=== PATIENT | male | born 1935 | race Caucasian/White ===

== ENCOUNTER 2019-06-17 19:19 | Inpatient (IN) | payer OTHER ==
[~2019-06-17] VITALS: Ht 182.9 cm; Wt 88.5 kg
[2019-06-17 19:25] VITALS: BP 193/106
[2019-06-17] MEDS ORDERED: LISINOPRIL20 MG PO (19:34)
[2019-06-17] MEDS ORDERED: VITAMIN B-1100 M1 PO (19:34)
[2019-06-17] MEDS ORDERED: CENTRUM SILVER1 EAC4 PO (19:34)
[2019-06-17] MEDS ORDERED: METFORMIN HCL500 MG PO (19:35)
[2019-06-17] MEDS ORDERED: PRAVACHOL40 MG PO (19:35)
[2019-06-17] MEDS ORDERED: CARVEDILOL6.25 M1 PO (19:35)
[2019-06-17] MEDS ORDERED: PRILOSEC OTC20 MG PO (19:35)
[2019-06-17] MEDS ORDERED: ASPIR 8181 MG PO (19:36)
[2019-06-17] MEDS ORDERED: TERAZOSIN HCL5 MG PO (19:36)
[2019-06-17] MEDS ORDERED: ELIQUIS5 MG PO (19:36)
[2019-06-17 20:04] LABS: ABSOLUTE EOSINOPHILS 0.3 thou/uL (0.0-0.7); ABSOLUTE MONOCYTES 0.7 thou/uL (0.0-1.2); ABSOLUTE NEUTROPHILS 3.5 thou/uL (1.6-8.1); BASOPHILS 0.6 %; EOSINOPHILS 5.8 %; HEMATOCRIT 33.4 % (42.0-52.0); HEMOGLOBIN 11.5 gm/dL (14.0-18.0); LYMPHOCYTES 17.6 %; MCH 32.1 pg (26.0-34.0); MCHC 34.5 g/dL (28.0-37.0); MCV 93.1 fL (80.0-100.0); MONOCYTES 12.1 %; MPV 7.3 fl. (7.2-11.1); NUCLEATED RBCS 0 /100WBC; PLATELET COUNT* 155 thou/uL (150-400); POLYS 63.9 %; RBC 3.59 mil/uL (4.50-6.00); RDW-CV 13.2 % (10.5-14.5); WBC 5.4 thou/uL (4.0-11.0)
[2019-06-17 20:10] LABS: ANION GAP 9 mmol/L (7-16); BUN 15 mg/dL (7-18); CALCIUM 8.6 mg/dL (8.5-10.1); CHLORIDE 96 mmol/L (98-107); CO2 26 mmol/L (21-32); GLUCOSE 89 mg/dL (70-99); POTASSIUM 4.4 mmol/L (3.5-5.1); SODIUM 131 mmol/L (136-145)
[2019-06-17 20:20] LABS: ALBUMIN 3.5 g/dL (3.4-5.0); INR 1.1; LIPASE 90 U/L (73-393); NT-PRO BRAIN NAT PEPTIDE 2839 pg/mL (<300); PROTIME 11.5 Seconds (9.20-11.50); SGOT 19 U/L (15-37); SGPT 20 U/L (30-65); TOTAL BILIRUBIN 0.3 mg/dL (<0.1-1.0); TOTAL PROTEIN 7.1 g/dL (6.4-8.2); TROPONIN-I LEVEL <0.06 ng/mL (<0.06)
[2019-06-17 20:52] LABS: ALKALINE PHOSPHATASE 66 U/L (46-116)
[2019-06-17 21:53] VITALS: BP 180/94
[2019-06-17 22:10] VITALS: BP 200/100
[2019-06-17 22:12] VITALS: BP 201/100
[2019-06-17] MEDS ORDERED: CARVEDILOL12.5 MG PO (22:45)
[2019-06-17 22:54] VITALS: BP 173/87
[2019-06-18 04:03] VITALS: BP 139/79
--- NOTE | 2019-06-18 05:20 | NUR ---
PATIENT PROGRESSING TOWARDS GOALS: BLOOD PRESSURE IMPROVED WITH MEDICATION PER MAR. PATIENT STATES THAT DOUBLE/BLURRED VISION IS ONLY WITH DISTANT VISION. PATIENT DENIES PAIN AND DISCOMFORT. CALL LIGHT WITHIN REACH
[2019-06-18 08:41] VITALS: BP 171/94
[2019-06-18 08:42] VITALS: BP 172/97
[2019-06-18 09:32] LABS: CHOLESTEROL 145 mg/dL (<200); HDL CHOLESTEROL 41 mg/dL (>40); LDL CHOLESTEROL 93 mg/dL (<100); TC:HDL 3.5 Ratio (Not establshd); TRIGLYCERIDE 55 mg/dL (<150); VLDL 11 mg/dL (<40)
[2019-06-18 09:39] LABS: SERUM ASSESSMENT Clear
--- NOTE | 2019-06-18 10:07 | NUR ---
ASSUMED PT CARE 0730. PT A/O X'S 4. NIH 0 AND CHARTED. RN BEDSIDE SWALLOW PREFORMED. PT NOT FOUND TO HAVE ANY SWALLOW DIFFICULTIES. SWALLOW EVAL CHARTED. PT EDUCATED ON MEDICATIONS AND PLAN OF CARE. PT COMMUNICATES UNDERSTANDING. PT DENIES DOUBLE VISION AT THIS TIME. URINE SAMPLE COLLETED AND SENT TO LAB.
[2019-06-18 10:13] LABS: URINE BILIRUBIN NEGATIVE (Negative); URINE BLOOD NEGATIVE (Negative); URINE CLARITY CLEAR; URINE COLOR YELLOW; URINE GLUCOSE-RANDOM NEGATIVE (Negative); URINE KETONES NEGATIVE (Negative); URINE LEUKOCYTES-REFLEX NEGATIVE (Negative); URINE NITRITE-REFLEX NEGATIVE (Negative); URINE PROTEIN NEGATIVE (Negative); URINE UROBILINOGEN 0.2 E.U./dl (0.2-1.0)
--- NOTE | 2019-06-18 10:48 | EKG ---
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[place] : 1935 Requested By: Kathe Bravo Order Number: [id number] MD: Jaziel Dash Measurements Intervals [place] Rate: 70 P: [place]: QRS: -48 QRSD: 130 T: -20 QT: 431 QTc: 466 Interpretive Statements Afib/flutter and ventricular-paced rhythm No further analysis attempted due to paced rhythm Compared to ECG 05/09/2008 16:34:30 Sinus bradycardia no longer present Electronically Signed On 06-18-2019 10:48:00 CDT by Jaziel Dash [email or web address] <ELECTRONICALLY SIGNED> By: Jaziel Dash MD, [facility] 06/18/19 1048 47 47 Jaziel Dash MD, [facility] /EPI
[2019-06-18 12:00] VITALS: BP 150/80
--- NOTE | 2019-06-18 13:51 | NUR ---
MET WITH PT TO DISCUSS HOME SITUATION/DC PLANNING. PT LIVES WITH , IS INDEPENDENT AND ACTIVE. USES NO EQUIPMENT. PLANS TO RETURN HOME AT DC DENIES NEEDS
--- NOTE | 2019-06-18 17:04 | 2DMMODE ---
[place] [address] 2 D/M-MODE ECHOCARDIOGRAM Name: STEVEN HOPE Room: [address] IN [facility]#: [id number] Admission: 06/17/19 Attend Phys: Yessi Wells, Discharge: Date of : 37 Date of Service: 06/18/19 1704 Report #: [id number] THIS REPORT FOR: //name// APPROVED REPORT Study performed: 06/18/2019 13:37:36 EXAM: Comprehensive 2D, Doppler, and color-flow Echocardiogram Patient Location: In-Patient Status: routine BSA: 2.06 HR: 70 bpm BP: 172/97 mmHg Other Information Study Quality: Good Indications CVA/TIA CAD Echo Enhancing Agent Indication: Rule out Shunt Agent(s) / Amount(s) Used: Agitated Saline 10 cc 2D Dimensions IVSd: 10.22 (7-11mm) LVOT Diam: 21.89 (18-24mm) LVDd: 38.58 mm PWd: 13.28 (7-11mm) Ascending Ao: 36.38 (22-36mm) LVDs: 28.06 (25-40mm) Aortic Root: 30.74 mm Volumes Left Atrial Volume (Systole) LA ESV Index: 45.80 mL/m2 Aortic Valve AoV Peak Ameya.: 1.61 m/s AO Peak Gr.: 10.43 mmHg LVOT Max P.57 mmHg AO Mean Gr.: 5.84 mmHg LVOT Mean P.20 mmHg LVOT Max V: 0.80 m/s AO V2 VTI: 31.92 cm LVOT Mean V: 0.49 m/s RALPH (VTI): 1.88 cm2 LVOT V1 VTI: 15.98 [place] [address] 2 D/M-MODE ECHOCARDIOGRAM Name: STEVEN HOPE Room: [address] IN ..#: [id number] Admission: 06/17/19 Attend Phys: Yessi Wells, Discharge: Date of : 37 Date of Service: 06/18/19 1704 Report #: [id number] Mitral Valve MV Decel. Time: 201.59 ms MV PHT: 58.46 ms MVA (PHT): 3.76 cm2 TDI Medial E' Ameya.: 0.11 m/s Lateral E' Ameya.: 0.11 m/s Pulmonary Valve PV Peak Ameya.: 0.82 m/s PV Peak Gr.: 2.68 mmHg Left Ventricle The left ventricle is normal size. There is normal LV segmental wall motion. There is normal left ventricular wall thickness. Left ventricular systolic function is normal. LVEF is 60-65%. This study is not technically sufficient to allow evaluation of the LV diastolic function due to atrial fibrillation. Right Ventricle The right ventricle is normal size. The right ventricular systolic function is normal. Pacemaker lead is present in the right ventricle. Atria Left atrium is moderately dilated. Interatrial septum is intact without evidence of ASD or PFO. The right atrium size is normal. Aortic Valve Bioprosthetic aortic valve is present. No aortic regurgitation is present. There is no aortic valvular stenosis. Mitral Valve There is mitral annular calcification. Trace mitral regurgitation. No evidence of mitral valve stenosis. Tricuspid Valve The tricuspid valve is normal in structure. Unable to assess PA pressure. Trace tricuspid regurgitation. Pulmonic Valve The pulmonary valve is normal in structure. Mild pulmonic regurgitation. Great Vessels The aortic root is normal in size. IVC is [place] [address] 2 D/M-MODE ECHOCARDIOGRAM Name: STEVEN HOPE Room: [address] IN [facility]#: [id number] Admission: 06/17/19 Attend Phys: Yessi Wells, Discharge: Date of : 37 Date of Service: 06/18/19 1704 Report #: [id number] collapses >50% with inspiration. Pericardium There is no pericardial effusion. <Conclusion> The left ventricle is normal size. Left ventricular systolic function is normal. LVEF is 60-65%. This study is not technically sufficient to allow evaluation of the LV diastolic function due to atrial fibrillation. Pacemaker lead is present in the right ventricle. Interatrial septum is intact without evidence of ASD or PFO. Bioprosthetic aortic valve is present. No aortic regurgitation is present. Trace mitral regurgitation. Trace tricuspid regurgitation. Mild pulmonic regurgitation. IVC is normal in size and collapses >50% with inspiration. <ELECTRONICALLY SIGNED> By: Imtiaz Marquis MD, FACC 06/18/19 1704 03 03 Imtiaz Marquis MD, FACC /INF
[2019-06-18 17:51] VITALS: BP 150/80
--- NOTE | 2019-06-18 19:00 | NUR ---
NEURO AND VASCULAR OKAY WITH DISCHARGE. RECEIVED DISCHARGE ORDERS. IV AND TOP ICER DC'D. PT AND FAMILY MEMBER EDUCATED ON DISCHARGE INSTRUCTED. PT INSTRUCTED TO F/U WITH OPTHAMOLOGY, CARDIOLOGY, VASCULAR AND PRIMARY DR. PT AND FAMILY COMMUNICATE UNDERSTANDING. ALL BELONGINGS PACKED UP AND LEFT WITH PATIENT.
[2019-06-19 02:10] LABS: GLYCOHEMOGLOBIN (HGB A1C) 6.1 % (4.8-5.6)
== END 2019-06-18 18:27 | disposition home or self-care (01) | DRG 69 ==
LOC: M.ERS 19:19 → M.2W 21:39 → M.TBA-ER 21:39 → M.2W 21:46
PROVIDERS: Emergency Medicine; Internal Medicine; ADMIT Internal Medicine
DX: G45.9 Transient cerebral ischemic attack, unspecified (principal); I16.1 Hypertensive emergency; D68.69 Other thrombophilia; E78.5 Hyperlipidemia, unspecified; I10 Essential (primary) hypertension; I48.91 Unspecified atrial fibrillation; E11.51 Type 2 diabetes mellitus with diabetic peripheral angiopathy without gangrene; I25.10 Atherosclerotic heart disease of native coronary artery without angina pectoris; Z95.5 Presence of coronary angioplasty implant and graft; Z95.0 Presence of cardiac pacemaker; Z95.1 Presence of aortocoronary bypass graft; Z88.0 Allergy status to penicillin; Z87.891 Personal history of nicotine dependence; Z95.2 Presence of prosthetic heart valve; Z79.82 Long term (current) use of aspirin; Z79.899 Other long term (current) drug therapy; Z79.01 Long term (current) use of anticoagulants

== ENCOUNTER 2019-10-15 09:41 | Inpatient (IN) | payer OTHER ==
[~2019-10-15] VITALS: Ht 182.9 cm; Wt 88.9 kg
[~2019-10-15 09:41] MED LIST: ASPIR 8181 MG PO; CARVEDILOL12.5 MG PO; CARVEDILOL6.25 M1 PO; CENTRUM SILVER1 EAC4 PO; ELIQUIS5 MG PO; LISINOPRIL20 MG PO; METFORMIN HCL500 MG PO; PRAVACHOL40 MG PO; PRILOSEC OTC20 MG PO; TERAZOSIN HCL5 MG PO; VITAMIN B-1100 M1 PO
[2019-10-15 10:25] LABS: HEMATOCRIT 30.7 % (42.0-52.0); HEMOGLOBIN 10.7 gm/dL (14.0-18.0); MCH 31.5 pg (26.0-34.0); MCHC 34.7 g/dL (28.0-37.0); MCV 90.8 fL (80.0-100.0); MPV 7.6 fl. (7.2-11.1); NUCLEATED RBCS 0 /100WBC; PLATELET COUNT* 154 thou/uL (150-400); RBC 3.39 mil/uL (4.50-6.00); RDW-CV 13.4 % (10.5-14.5); WBC 13.5 thou/uL (4.0-11.0)
[2019-10-15 10:31] LABS: CALCIUM 7.9 mg/dL (8.5-10.1); CREATININE 1.6 mg/dL (0.6-1.3); POTASSIUM 4.3 mmol/L (3.5-5.1)
[2019-10-15 10:36] LABS: ALBUMIN 2.5 g/dL (3.4-5.0); TOTAL BILIRUBIN 1.4 mg/dL (<0.1-1.0); TOTAL PROTEIN 6.8 g/dL (6.4-8.2)
[2019-10-15 10:53] LABS: ABSOLUTE EOSINOPHILS 0.1 thou/uL (0.0-0.7); ABSOLUTE LYMPHOCYTES 0.9 thou/uL (0.8-5.3); ABSOLUTE MONOCYTES 0.1 thou/uL (0.0-1.2); ABSOLUTE NEUTROPHILS 12.3 thou/uL (1.6-8.1); PLATELET ESTIMATE ADEQUATE
[2019-10-15 11:03] LABS: MAGNESIUM 2.1 mg/dL (1.8-2.4); PHOSPHORUS* 3.2 mg/dL (2.5-4.9)
--- NOTE | 2019-10-15 11:29 | NUR ---
PT BACK FROM RADIOLOGY VIA STRETCHER BY [employer].
[2019-10-15 12:48] LABS: BE -0.4 mmol/L (-2 to +3); PCO2 31.2 mmHg (35.0-45.0); PO2 67.1 mmHg (75.0-100.0); pH 7.475 (7.340-7.450)
--- NOTE | 2019-10-15 15:06 | EKG ---
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[facility] : 1935 Requested By: Manisha Hanks Order Number: [id number] MD: Robert Potter Measurements Intervals [place] Rate: 70 P: [place]: QRS: -39 QRSD: 136 T: -42 QT: 436 QTc: 471 Interpretive Statements Afib/flutter and ventricular-paced rhythm No further analysis attempted due to paced rhythm Compared to ECG 06/17/2019 19:48:49 No significant changes Electronically Signed On 10-15-2019 15:05:50 GOLD LEAF PRINTER by Robert Potter [email or web address] <ELECTRONICALLY SIGNED> By: Robert Potter MD, [facility] 10/15/19 1505 1056 1056 Robert Potter MD, [facility] /EPI
--- NOTE | 2019-10-15 15:23 | NUR ---
THIS NURSE CALLED FOR PT REPORT X2. FLOOR NURSE UNAVAILABLE FOR REPORT BOTH TIMES. PT AND PT FAMILY MADE AWARE OF DELAY.
[2019-10-15 15:29] VITALS: BP 108/58
--- NOTE | 2019-10-15 15:29 | NUR ---
REPORT GIVEN TO ALMAS MARTINEZ WHO IS TO ASSUME PT CARE INPATIENT NURSE.
--- NOTE | 2019-10-15 15:55 | NUR ---
PT ARRIVED TO UNIT AT APPROX 1545 VIA CART, AND SON AT BEDSIDE, REPORT TAKEN YOEL ALARCON RN. PT A&O X4, HR SHARED SERVICES CONSULTANT TRACING V PACED, RA, VSS. ORIENTED TO CALL LIGHT AND ROOM.
[2019-10-15 18:43] LABS: URINE BILIRUBIN NEGATIVE (Negative); URINE BLOOD 1+ (Negative); URINE CLARITY CLEAR; URINE COLOR YELLOW; URINE GLUCOSE-RANDOM NEGATIVE (Negative); URINE KETONES NEGATIVE (Negative); URINE LEUKOCYTES-REFLEX NEGATIVE (Negative); URINE NITRITE-REFLEX NEGATIVE (Negative); URINE PROTEIN 1+ (Negative); URINE SPECIFIC GRAVITY <= 1.005 (1.005-1.030); URINE UROBILINOGEN 0.2 E.U./dl (0.2-1.0)
[2019-10-15 18:54] LABS: BACTERIA-REFLEX None Seen /HPF (None Seen); CASTS None Seen /LPF (None Seen); CRYSTALS None Seen /LPF (None Seen); SQUAMOUS 0-3 Few /LPF (0-3); URINE RBC 0-2 Rare /HPF (0-2); URINE WBC-REFLEX None Seen /HPF (0-5)
[2019-10-15 20:00] VITALS: BP 117/57
[2019-10-16] VITALS (8 sets, daily range): BP systolic 108–144; BP diastolic 55–68
--- NOTE | 2019-10-16 02:41 | NUR ---
PT ALERT ORIENTED. 3% SODIUM CLORIDE INFUSING AT 30MLS/HR. NA LEVELS RISING. TELEMTRY SHOWS VPACED. WCTM.
[2019-10-16 06:27] LABS: ALBUMIN 2.1 g/dL (3.4-5.0); CALCIUM 7.7 mg/dL (8.5-10.1); CREATININE 1.1 mg/dL (0.6-1.3); POTASSIUM 3.8 mmol/L (3.5-5.1); TOTAL BILIRUBIN 0.8 mg/dL (<0.1-1.0); TOTAL PROTEIN 5.9 g/dL (6.4-8.2)
--- NOTE | 2019-10-16 18:35 | NUR ---
PATINET RESTING IN BED. NO APPRECIABLE BOWEL MOVEMENT TODAY. HYPOACTIVE BOWEL SOUNDS. VSS. UP WITH STANDBY ASSISTANCE. HOURLY ROUNDING COMPETED FOR PATINET SAFETY
[2019-10-17 04:00] VITALS: BP 141/70
--- NOTE | 2019-10-17 05:28 | NUR ---
ASSUMED PT CARE AT APPROX 1930. PT IS AWAKE AND ORIENTED X4. VSS ON ROOM AIR. ASSESSMENT DONE AND CHARTED. PT IS VPACED ON THE CITY WELLNESS COORDINATOR. PT IS ABLE TO SLEEP MOST OF THE NIGHT. CALL LIGHT WITHIN REACH. POSITION CHANGES DONE. HIGH FALL PRECAUTIONS IN PLACE. HOURLY ROUNDING DONE FOR PT SAFETY.
[2019-10-17 07:59] VITALS: BP 147/86
[2019-10-17 13:52] VITALS: BP 141/74
[2019-10-17 14:09] LABS: CALCIUM 7.3 mg/dL (8.5-10.1); POTASSIUM 3.7 mmol/L (3.5-5.1)
[2019-10-17 16:47] VITALS: BP 139/67
--- NOTE | 2019-10-17 18:20 | NUR ---
PTAIENT RESTING IN BED. UP AD AMARILYS IN ROOM. AOX4. VSS. ALICE HAD 1 LARGE BOWEL MOVEMENT TODAY AFTER SOAP SUDS ENEMA AND ONE SMALL BOWEL MOVEMENT LATER. ACTIVE BOWEL SOUNDS. HOURY ROUNDING COMPETED FOR PATIENT SAFETY. NA LAB AT 128 WITH ORDERS TO DSCHARGE HOME IF 129 OR HIGHER. HOURLY ROUNDING COMPLETED FOR PATIENT SAFETY.
[2019-10-17 20:00] VITALS: BP 134/68
[2019-10-18] VITALS: BP 127/60
[2019-10-18 04:00] VITALS: BP 123/62
--- NOTE | 2019-10-18 04:46 | NUR ---
ASSUMED PT CARE AT APPROX 1930. PT IS AWAKE AND ORIENTED X4. VSS ON ROOM AIR. ASSESSMENT DONE AND CHARTED. PT IS VPACED ON THE EMPLOYEE COUNSELOR. PT IS ABLE TO SLEEP MOST OF THE NIGHT. CALL LIGHT WITHIN REACH. PT IS REMINDED ON FLUID RESTRICTION OF 1500ml/DAY. FALL PRECAUTIONS IN PLACE. HOURLY ROUNDING DONE FOR PT SAFETY.
[2019-10-18 07:51] VITALS: BP 140/69
[2019-10-18 12:00] VITALS: BP 125/83
[2019-10-18 14:17] LABS: CALCIUM 8.2 mg/dL (8.5-10.1); POTASSIUM 3.7 mmol/L (3.5-5.1)
[2019-10-18 14:32] VITALS: BP 125/83
--- NOTE | 2019-10-18 19:01 | NUR ---
ORDER RECEIVED TO DISCHARGE PATIENT HOME TO SELF CARE WITH HIS SPOUSE. MED REC, MEDICATION EDUCATION, STROKE EDUCATION, AND NEED FOR FOLLOW UP WITH PRIMARY CARE AND CARDIOLOGY COVERED WITH ALICE AND BURTON UNDERSTOOD. IV AND TELEMETRY PACK REMOVED. PATIENT CHOSE TO AMBULATED TO CAR WITH STAFF TO AWAITING CAR WITH FAMILY PRESENT. DC TIME OF 15:30. HOURLY ROUNDING COMPLETED FOR PATIENT SAFETY.
== END 2019-10-18 15:38 | disposition home or self-care (01) | DRG 682 ==
LOC: M.ERS 09:41 → M.TBA-ER 12:20 → M.2W 12:20
PROVIDERS: Personal Emergency Response Attendant; ADMIT Internal Medicine
DX: N17.9 Acute kidney failure, unspecified (principal); G92 Toxic encephalopathy; J18.9 Pneumonia, unspecified organism; E87.1 Hypo-osmolality and hyponatremia; J91.8 Pleural effusion in other conditions classified elsewhere; K80.20 Calculus of gallbladder without cholecystitis without obstruction; F10.10 Alcohol abuse, uncomplicated; I10 Essential (primary) hypertension; E11.9 Type 2 diabetes mellitus without complications; I48.91 Unspecified atrial fibrillation; I25.10 Atherosclerotic heart disease of native coronary artery without angina pectoris; K59.00 Constipation, unspecified; E78.5 Hyperlipidemia, unspecified; Z79.899 Other long term (current) drug therapy; Z79.82 Long term (current) use of aspirin; Z88.0 Allergy status to penicillin; Z95.5 Presence of coronary angioplasty implant and graft; Z95.1 Presence of aortocoronary bypass graft; Z95.0 Presence of cardiac pacemaker; Z28.21 Immunization not carried out because of patient refusal; Z95.2 Presence of prosthetic heart valve; Z87.891 Personal history of nicotine dependence; Z79.01 Long term (current) use of anticoagulants

== ENCOUNTER 2019-12-27 08:36 | Day surgery (SDC) | payer OTHER ==
--- NOTE | ~2019-12-27 | PROC ---
[facility] [address] [place] [address] PROCEDURE REPORT Name: STEVEN HOPE Room: [facility] M.R.#: [id number] Admission: 12/27/19 Attend Phys: Corky Gomez DO Discharge: 12/27/19 Date of : 37 Report #: [id number] THIS REPORT FOR: //name// cc: Jaziel Gannon John E. DO ~ THIS REPORT FOR: //name// For GI report, please see the Provation report in Perceptive 7 content. By: 0644Medical Records Staff ADRIANO /KATYA
[2019-12-27 09:18] LABS: HEMATOCRIT 35.1 % (42.0-52.0); MCH 30.7 pg (26.0-34.0); MCHC 34.3 g/dL (28.0-37.0); MCV 89.6 fL (80.0-100.0); MPV 6.6 fl. (7.2-11.1); RBC 3.92 mil/uL (4.50-6.00); RDW-CV 15.7 % (10.5-14.5); WBC 6.2 thou/uL (4.0-11.0)
[2019-12-27 09:26] LABS: CALCIUM 8.9 mg/dL (8.5-10.1); CREATININE 0.9 mg/dL (0.6-1.3); POTASSIUM 4.4 mmol/L (3.5-5.1)
[2019-12-27 12:29] LABS: ALBUMIN 3.5 g/dL (3.4-5.0); DIRECT BILIRUBIN 0.2 mg/dL (<0.1-0.3); TOTAL BILIRUBIN 0.6 mg/dL (<0.1-1.0); TOTAL PROTEIN 7.5 g/dL (6.4-8.2)
--- NOTE | 2019-12-29 14:07 | PATH ---
[facility] [address] [place] [address] PATHOLOGY RPT PROCEDURE Name: FABRIZIO HOPE Room: [facility].#: [id number] Admission: 12/27/19 Date of : 37 Discharge: 12/27/19 Report #: [id number] Path Case #: [id number] [facility] Accession Number: [id number] . 01 Material submitted: . colon - PROXIMAL ASCENDING COLON POLYP - HOT SNARE. Modifiers: ascending, proximal . 01 Clinical history: . Iron deficiency anemia . 02 Diagnosis: Proximal ascending colon polyp: - Tubular adenoma, negative for high-grade dysplasia. (LYNN:geno; 12/29/2019) QMS 12/29/2019 1157 Local . 02 Electronically signed: . Kareem Rojo MD, Pathologist NPI- [id number] . 01 Gross description: . The specimen is received in formalin, labeled "Fabrizio Hope, proximal ascending colon polyp" and consists of 3 fragments of pink-eduardo tissue measuring between 0.2 x 0.2 cm and 0.5 x 0.4 x 0.2 cm which are entirely submitted in A1. (SDY; 12/28/2019) SYU/SYU 12/28/2019 1509 Local . 02 Pathologist provided ICD-10: D12.2 . 02 CPT . 439009 Specimen Comment: A courtesy copy of this report has been sent to [phone], [phone] Specimen Comment: [phone] Specimen Comment: Report sent to / DR GARCÍA Performed at: [address] [facility] [address], [place], [place] [id number] MD Elmo James MD Phone: [phone] Performed at: [address] [facility] [address] [place], [place] [id number] MD Kareem Rojo MD Phone: [phone]
== END 2019-12-27 12:20 | disposition home or self-care (01) ==
LOC: M.SUR 08:36
PROVIDERS: Internal Medicine Gastroenterology
DX: D64.9 Anemia, unspecified (principal); R93.3 Abnormal findings on diagnostic imaging of other parts of digestive tract; R12 Heartburn; K57.30 Diverticulosis of large intestine without perforation or abscess without bleeding; D12.3 Benign neoplasm of transverse colon; K55.20 Angiodysplasia of colon without hemorrhage; K64.4 Residual hemorrhoidal skin tags; K21.9 Gastro-esophageal reflux disease without esophagitis; I10 Essential (primary) hypertension; I48.91 Unspecified atrial fibrillation; E11.9 Type 2 diabetes mellitus without complications; I25.10 Atherosclerotic heart disease of native coronary artery without angina pectoris; E78.00 Pure hypercholesterolemia, unspecified; Z98.890 Other specified postprocedural states; Z79.899 Other long term (current) drug therapy; Z79.01 Long term (current) use of anticoagulants; Z87.891 Personal history of nicotine dependence; Z88.0 Allergy status to penicillin; Z95.1 Presence of aortocoronary bypass graft; Z95.0 Presence of cardiac pacemaker

== ENCOUNTER → 2021-10-25 | Outpatient (CLI) | payer OTHER ==
[~2021-10-25] VITALS: Ht 177.8 cm; Wt 88.9 kg
[~2021-10-25] MED LIST changes: +ASA81BEC PO
--- NOTE | 2021-10-25 10:56 | H ---
[place] [address] HISTORY AND PHYSICAL Name: STEVEN HOPE Room: [facility].#: [id number] Admission: Attend Phys: Imtiaz Marquis MD Discharge: Date of : 37 Report #: [id number] THIS REPORT FOR: cc: Jaziel Gannon John E. DO Holkins, John M. MD FACC ~ ADMIT DATE: 10/25/2021 ADMITTING HISTORY AND PHYSICAL HISTORY OF PRESENT ILLNESS: The patient will be admitted for procedure in a cardiac catheterization lab on 10/25/2021. 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 Postoperatively, he demonstrated moderate impairment in LV function and a BiV ICD was placed as he also demonstrated transitory heart block. More recently, he has demonstrated evidence for persistent atrial fibrillation, has been anticoagulated with Eliquis. So, I most recently saw him, he had been working outside, 4-6 hours per day without provocation of chest discomfort undue dyspnea, palpitations, dizziness or syncope. He has remained compliant with anticoagulant therapy, remodeling therapy, and lipid-lowering therapy without side effects of same. MEDICATIONS: Have included Eliquis 5 mg b.i.d., aspirin 81 mg b.i.d., carvedilol 12.5 mg b.i.d., lisinopril 20 mg daily, omeprazole 20 mg daily, Pravachol, pravastatin 40 mg daily, terazosin 5 mg in the evening. PAST MEDICAL HISTORY: Remarkable for ischemic cardiomyopathy, heart block and hypercholesterolemia. REVIEW OF SYSTEMS: Unremarkable with the exception of diminished urinary stream. PHYSICAL EXAMINATION: GENERAL: Demonstrates an elderly male who is fit appearing and in no acute distress. VITAL SIGNS: Blood pressure is 135/70, pulse rate is 70, respirations are 18 per minute. NECK: Jugular venous pressure is normal. [place]ST: [place] [address] HISTORY AND PHYSICAL Name: STEVEN HOPE Room: [facility].#: [id number] Admission: Attend Phys: Imtiaz Marquis MD Discharge: Date of : 37 Report #: [id number] CARDIAC: Reveals a normal first and second heart sounds with a slightly increased S2. No murmurs are noted. ABDOMEN: Soft and nontender. EXTREMITIES: Without edema with intact pulses. LABORATORY DATA: Recent assessment of his paced Bi-V ICD revealed that he had met elective replacement indicators as of 10/17/2021. IMPRESSION: 1. Coronary artery disease. 2. Status post coronary artery bypass grafting. 3. Status post aortic valve replacement. 4. Status post placement of a BiV ICD with evidence of meeting replacement indicators as of 10/17/2021. 5. Hypertension. 6. Ischemic cardiomyopathy. 7. Hyperlipidemia. RECOMMENDATIONS: Given the aforementioned clinical scenario and the aforementioned findings with respect to his BiV ICD, the patient is admitted for assessment of his system and replacement of the generator. This is to be undertaken on 10/25/2021. <ELECTRONICALLY SIGNED> By: Jaziel Dash MD, FACC 10/25/21 1056 0845 [id number] Dash MD, FACC /nt
[2021-10-25 14:01] VITALS: BP 165/87
[2021-10-25 14:29] LABS: HEMATOCRIT 36.6 % (42.0-52.0); HEMOGLOBIN 12.4 gm/dL (14.0-18.0); MCH 31.7 pg (26.0-34.0); MCHC 33.9 g/dL (28.0-37.0); MCV 93.5 fL (80.0-100.0); MPV 7.2 fl. (7.2-11.1); RBC 3.92 mil/uL (4.50-6.00); RDW-CV 13.9 % (10.5-14.5); WBC 5.4 thou/uL (4.0-11.0)
--- NOTE | 2021-10-25 14:32 | EKG ---
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: : 1935 Requested By: Imtiaz Marquis Order Number: [id number] Reading MD: Jaziel Dash Measurements Intervals [place] Rate: 69 P: [place]: QRS: -25 QRSD: 122 T: 24 QT: 438 QTc: 470 Interpretive Statements Afib/flut and V-paced complexes with rare PVCs No further analysis attempted due to paced rhythm Compared to ECG 10/15/2019 10:56:15 A rare PVC is noted Electronically Signed On 10-25-2021 14:32:14 WORK FROM HOME by Jaziel Dash [email or web address] <ELECTRONICALLY SIGNED> By: Jaziel Dash MD, [facility] 10/25/21 1432 1429 1429 Jaziel Dash MD, [facility] /EPI
[2021-10-25 14:35] LABS: CALCIUM 8.7 mg/dL (8.5-10.1); CREATININE 1.3 mg/dL (0.6-1.3); POTASSIUM 4.3 mmol/L (3.5-5.1)
[2021-10-25 14:38] LABS: APTT 30.8 Seconds (25.0-31.3); INR 1.2; PROTIME 11.9 Seconds (9.20-11.50)
[2021-10-25 14:43] LABS: ALBUMIN 4.1 g/dL (3.4-5.0); TOTAL BILIRUBIN 0.4 mg/dL (<0.1-1.0); TOTAL PROTEIN 8.2 g/dL (6.4-8.2)
[2021-10-25 17:30] VITALS: BP 181/94
[2021-10-25 17:45] VITALS: BP 171/80
[2021-10-25 18:01] VITALS: BP 178/87
--- NOTE | 2021-11-01 10:47 | CARD ---
[address] [address] CARDIAC CATH REPORT Name: HOPESTEVEN Asher Room: [facility]#: [id number] Admission: 10/25/21 Attend Phys: Imtiaz Marquis MD Discharge: Date of : 37 Report #: [id number] THIS REPORT FOR: cc: Jaziel Gannon John E. DO Liston, Michael J. MD [facility] ~ APPROVED REPORT Study performed: 10/25/2021 13:24:23 Patient Status: Out-Patient Room #: Event Personnel: Leather Parts Matcher: Imtiaz Marquis MD Exam: Generator Change for a Bi-Ventricular Permanent Pacemaker The patient is a 86 year-old male with a history of symptomatic AV Block. Patient Info Antiplatelet Therapy: aspirin Anticoagulant Therapy: eliquis Conscious Sedation Start time: 16:24 End Time: 16:43 Fentanyl 50.0 mcg Versed 1.0 mg Implanted Devices: Medtronic [id number]; Solara Quad NAIL TECHNICIAN TEACHER-P MRI Sure Scan Serial Number [id number] Explanted Devices: Allure Quadra RF Serial Number [id number], Heading And Priming Tool Setter [place] implanted date of 08/12/2014 Procedure The patient underwent informed consent. We discussed the details of the procedure including the risks, which include, but not limited to bleeding, infection, vascular damage, cardiac perforation, and pneumothorax. He understood these risks and was willing to proceed. As such, was brought to the EP/Cardiac Catheterization laboratory in a fasting and sedated state and prepped and draped in a The patient was brought to the EP/Cardiac Catheterization laboratory and the left chest and shoulder were prepped and draped in a sterile manner. During this case, Fluoroscopy and no contrast were used for imaging. IV conscious sedation was used [place] [address] CARDIAC CATH REPORT Name: STEVEN HOPE Room: [facility]#: [id number] Admission: 10/25/21 Attend Phys: Imtiaz Marquis MD Discharge: Date of : 37 Report #: [id number] monitoring and was performed in the presence of a registered nurse who was an independent trained observer other than the physician performing the procedure. The left subclavian region was infiltrated with 2% Lidocaine subcutaneous anesthesia. A transverse incision was made in the left upper chest cavity. After an initial incision the existing device was explanted using electrocautery and blunt dissection. Once the device was explanted the device was detached from the RV pacing ICD lead, LV lead and atrial lead. The device pocket was flushed with antibiotic solution. The new pacing ICD generator was attached to the atrial, LV and pacing ICD lead. The device and redundant lead were then replaced within the device pocket. The deep tissues were closed using interrupted stitches of 2-0 Vicryl. The skin was then closed with a single subcuticular stitch of 4-0 Vicryl. Several Steri-Strips were placed across the incision. A sterile Telfa dressing was then covered with a Tegaderm. The patient tolerated the procedure well without complication. Generator Change The generator change was then secured using 0 silk sutures. The subcutaneous pocket was irrigated with vancomycin antibiotic solution.A new lead was inserted/positioned into the rightleft ventricle. The lead was attached to the appropriate receptacle on the new pulse generator and setscrews firmly tightened to insure adequate contact and stability. Complications The patient tolerated the procedure well and there were no complications associated with the procedure. Findings Specimens Removed: N/A Estimated Blood Loss: less than 5ml The underlying rhythm is atrial fibrillation with slow ventricular response rate. Atrial lead impedance 399 ohms. RV lead impedance 456 ohms. LV lead impedance 684 ohms. RV lead threshold 0.75 V@0.40 ms. LV lead threshold 0.75 V@0.40 ms. Conclusion 1. Biventricular pacing ICD generator at elective replacement. 2. Successful replacement of [place] [address] CARDIAC CATH REPORT Name: STEVEN HOPE Room: [facility]#: [id number] Admission: 10/25/21 Attend Phys: Imtiaz Marquis MD Discharge: Date of : 37 Report #: [id number] Recommendations 1. Follow-up site check in 1 week. 2. Follow-up device interrogation 4 weeks. <ELECTRONICALLY SIGNED> By: Imtiaz Marquis MD, FACC 11/01/21 1047 1047 1047Michaebrad Marquis MD, FACC /INF
== END | disposition home or self-care (01) ==
LOC: M.CL 06:22
PROVIDERS: ATTEND Internal Medicine Cardiovascular Disease
DX: Z45.010 Encounter for checking and testing of cardiac pacemaker pulse generator [battery] (principal); I44.2 Atrioventricular block, complete; I10 Essential (primary) hypertension; I25.10 Atherosclerotic heart disease of native coronary artery without angina pectoris; I25.5 Ischemic cardiomyopathy; I48.91 Unspecified atrial fibrillation; E78.5 Hyperlipidemia, unspecified; E11.9 Type 2 diabetes mellitus without complications; Z98.890 Other specified postprocedural states; Z79.899 Other long term (current) drug therapy; Z87.891 Personal history of nicotine dependence; Z95.1 Presence of aortocoronary bypass graft; Z88.0 Allergy status to penicillin; Z79.01 Long term (current) use of anticoagulants; Z79.82 Long term (current) use of aspirin; Z95.2 Presence of prosthetic heart valve